=== PATIENT | male | born 1955 | race Hispanic/Latino ===

== ENCOUNTER 2024-03-28 06:53 | Day surgery (SDC) | payer OTHER ==
--- NOTE | 2024-03-26 12:05 | EKG ---
[facility] Test Date: 2024-03-26 Test Time: 12:44:08 Pat Name: AKIN VILLAGRAN Department: [facility] Room: Gender: M [employer] Supervisor: [id number] : 1955 Requested By: MAYA ABBASI Order Number: [id number] Reading MD: Andrew Boyle Measurements Intervals [place] Rate: 58 P: 21 [place]: 171 QRS: -3 QRSD: 93 T: 36 QT: 416 QTc: 406 Interpretive Statements Sinus rhythm Atrial premature complex No previous ECG available for comparison Electronically Signed On 03-27-2024 20:01:37 [employer] VENTILATOR by Andrew Boyle Please click the below link to view image of tracing.
[2024-03-26 12:12] LABS: BASOPHILS # (AUTO) 0.05 K/uL (0.00-0.20); BASOPHILS % (AUTO) 0.7 % (0.0-5.0); EOSINOPHILS # (AUTO) 0.04 K/uL (0.00-0.70); EOSINOPHILS % (AUTO) 0.6 % (0.0-8.0); HEMATOCRIT 43.3 % (42-54); IMMATURE GRANULOCYTE ABSOLUTE 0.02 K/uL (0-1); LYMPHOCYTES # (AUTO) 1.4 K/uL (1.0-4.8); LYMPHOCYTES % (AUTO) 19.9 % (21.0-51.0); MEAN CORPUSCULAR HEMOGLOBIN 30.8 pg (27.0-33.0); MEAN CORPUSCULAR HGB CONC 32.1 g/dL (32.0-36.0); MEAN CORPUSCULAR VOLUME 95.8 fL (79-99); MONOCYTES # (AUTO) 0.7 K/uL (0.1-1.0); MONOCYTES % (AUTO) 10.2 % (3.0-13.0); NEUTROPHILS # (AUTO) 4.9 K/uL (1.8-7.7); NEUTROPHILS % (AUTO) 68.3 % (40.0-77.0); PLATELET COUNT (AUTO) 244 K/uL (130-400); RED BLOOD CELL COUNT(AUTO) 4.52 MIL/uL (4.50-6.20); RED CELL DISTRIBUTION WIDTH 13.1 % (11.0-15.5); WHITE BLOOD COUNT (AUTO) 7.2 K/uL (4.8-10.8)
[2024-03-26 12:33] LABS: POTASSIUM 4.7 mmol/L (3.5-5.1)
[2024-03-26 12:37] VITALS: BP 187/101; PULSE 61; RESP 18; TEMP 97.5
[2024-03-26 12:45] LABS: INR 0.94 (0.85-1.15); PROTHROMBIN TIME 10.6 SEC (9.6-11.6)
[2024-03-26 12:47] LABS: PARTIAL THROMBOPLASTIN TIME 28.9 SEC (26.3-35.5)
[2024-03-26 12:50] LABS: B-TYPE NATRIURETIC PEPTIDE 54 pg/mL (0-100)
--- NOTE | 2024-03-26 13:06 | HMCIMG ---
CHEST 1VW REASON: PREOP COMPARISON: None FINDINGS: Single view of the chest was obtained. Lungs are clear. Heart size is normal. There is no pulmonary vascular congestion. Mediastinum and bony thorax appear unremarkable. IMPRESSION: 1. Normal single view chest x-ray.
[2024-03-26 13:24] LABS: APPEARANCE,URINE CLEAR (CLEAR); BILIRUBIN,URINE NEGATIVE (NEGATIVE); COLOR,URINE LIGHT-YELLOW (YELLOW); GLUCOSE, URINE (UA) 300 mg/dL (NEGATIVE); KETONES,URINE NEGATIVE (NEGATIVE); LEUKOCYTE ESTERASE ,URINE NEGATIVE Leu/uL (NEGATIVE); NITRATE,URINE NEGATIVE (NEGATIVE); PROTEIN,URINE 100 mg/dL (NEGATIVE); UROBILINOGEN,URINE 0.2 mg/dL (0.2-1.0)
[2024-03-26 13:58] LABS: ADD UA MICROSCOPIC YES
[2024-03-26 14:07] LABS: RBC,URINE 0-1 /HPF (0-1); SQUAMOUS EPITHELIAL CELL,UR RARE /HPF (0-2)
[2024-03-28] VITALS (12 sets, daily range): BP systolic 142–175; BP diastolic 69–84; PULSE 58–76; RESP 15–24; TEMP 97.4–98.1
[~2024-03-28] VITALS: Ht 170.2 cm; Wt 97.8 kg
[~2024-03-28 06:53] MED LIST: ATOR-2 PO; CHOL400T4 PO; LOSA100T59 PO; METF-446 PO; PIOG45TA64 PO; SILD100T PO; TAMS-1 PO
[2024-03-28] MEDS: 0.9%NACL 1000ML 1,000 ML IV SCH (07:59)
[2024-03-28] MEDS ORDERED: INSU100V51 SQ (08:29)
[2024-03-28] MEDS ORDERED: SODIUM BICARB 50MEQ 50ML VIAL 50 ML ONE (10:14)
[2024-03-28] MEDS ORDERED: LIDOCAINE HCL 400MG/20ML VIAL ONE (10:14)
[2024-03-28] MEDS ORDERED: HEParin-NS 1,000 UNIT/500 ML 1,000 ML IV ONE (10:14)
[2024-03-28] MEDS ORDERED: niCARDIpine 25MG INJ IV ONE (10:14)
[2024-03-28] MEDS ORDERED: HEParin 10,000 UNIT/10ML (1,000 UNIT/ML) VIAL ONE (10:14)
[2024-03-28] MEDS ORDERED: NITROGLYCERIN 50MG VIAL ONE (10:15)
[2024-03-28] MEDS ORDERED: FENTanyl CITRate PF 50 MCG/1 ML 2ML VIAL ONE (10:23)
[2024-03-28] MEDS ORDERED: MIDAZOLAM HCL 1 MG/ML 2ML VIAL ONE (10:23)
[2024-03-28] MEDS ORDERED: IOHEXOL 350 MG/ML 100ML INFUS..BTL IV ONE (10:36)
[2024-03-28] MEDS ORDERED: 0.9% NACL 500ML IV.SOLN 500 ML IV SCH (11:30)
--- NOTE | 2024-03-28 11:40 | PRN ---
Left Heart Catheterization And Coronary Arteriogram From Right Radial Approach Indication: High-Risk Stress Test In Diabetic With Peripheral Vascular Disease Technique: Patient was brought to the lab in a fasting state after informed consent and sedated with 4 mg Versed and 50 mcg fentanyl. Under local anesthesia with 1% lidocaine using ultrasound guidance the right radial artery was accessed and a 5/6 Welsh Terumo sheath was inserted. Right and left coronary arteriograms were obtained in multiple projections using a five Welsh tiger catheter. An exchange was made for a six Welsh angled pigtail and left heart catheterization was carried out. Pressures were measured and left ventricular cineangiography was performed in GREEN projection. Pullback recording was obtained. The catheter was removed over a guidewire and hemostasis was obtained by use of a to remove band. No complications occurred. Results: Hemodynamics: LVEDP 14 before angiography and 13 after. LV systolic pressure 153 with aortic root pressure 131/54, mean 87. It appeared there was significant catheter with; we do not believe there is significant aortic outflow gradient. Ventriculography: Frequent ectopy was induced by ventriculography in the AF appears to be 80% with this is post PVC. Mitral valve is competent and there were no regional wall motion abnormalities. Arteriography: This is a right-dominant system. The right coronary supplies and posterior descending in for posterolateral. There is 30% plaque after the conus branch in the proximal vertical portion and there was 30% narrowing at the origin of the posterior descending. There were 40% narrowing at the origins of the 1st and 2nd posterolateral. There was no high-grade disease in the right coronary. The left main is free of high-grade disease. The left anterior descending is notable for a 65% proximal narrowing, then an 80% radiolucent stenosis at the level of the 1st septal blueprint reader. Between the 1st septal blueprint reader and 1st diagonal, and the 2nd diagonal there was segmental high-grade disease with a radiolucent 85% narrowing superimposed and a 60-75% stenosis just proximal to the 2nd diagonal. The 2nd diagonal was neuro by 60% high-dose origin and it is a small vessel. After the 2nd diagonal there was a 50% narrowing and then the rest of the LAD is diffusely plaque laden and reduced in diameter less than 2 mm. The left circumflex is narrowed by 60% at its origin. The 1st obtuse marginal is a tiny branch nearby 90% at its origin. The principal circulation from the circumflex is in the large 2nd obtuse marginal which courses to the apex. The 2nd obtuse marginal is notable for an 85% segmental ostial narrowing. There was also a terminal posterolateral branch of the circumflex of limited distribution. Conclusions: This patient has a high-risk nuclear stress test associated with diffuse disease in the LAD and high-grade disease in the principal vessel of the circumflex. I perceive high restenosis potential because of diffuse disease with relatively small caliber LAD vessel, and the circumflex is also notable for a segmental ostial anatomy, so I believe internal mammary graft to the LAD with vein graft to the circumflex would be solution for this patient. MAYA ABBASI MD Mar 28, 2024 11:40
[2024-03-28] MEDS: INSULIN humuLIN R 100 UNIT/ML 3ML SQ ONE (12:15)
--- NOTE | 2024-03-28 12:30 | NUR ---
URINARY: VOIDED 300CC YELLOW COLOR URINE PER URINAL WITHOUT DIFFICULTY.
--- NOTE | 2024-03-28 14:45 | NUR ---
TR-BAND: TR BAND REMOVED WITH NO ACTIVE BLEEDING PRESENT. CLEANSED WITH CHLOR PREP FOLLOWED BY APPLYING STERILE 2X2 GAUZE THAN 2X2 TEGADERM. NO REDNESS/SWELLING NOTED TO SURROUNDING AREA RT WRIST.
--- NOTE | 2024-03-28 16:20 | NUR ---
UPDATE DR. JIMENEZ GIVEN VERBAL ORDERS FOR PATIENT TO BE DISCHARGED TODAY AND SURGERY TO BE DONE IN A WEEK.
== END 2024-03-28 16:40 | disposition home or self-care (01) ==
LOC: DAH 06:53
PROVIDERS: ATTEND Internal Medicine Cardiovascular Disease
DX: R94.39 Abnormal result of other cardiovascular function study (principal); E11.51 Type 2 diabetes mellitus with diabetic peripheral angiopathy without gangrene; I25.118 Atherosclerotic heart disease of native coronary artery with other forms of angina pectoris; I25.83 Coronary atherosclerosis due to lipid rich plaque; I99.8 Other disorder of circulatory system; I11.0 Hypertensive heart disease with heart failure; I50.30 Unspecified diastolic (congestive) heart failure; I74.3 Embolism and thrombosis of arteries of the lower extremities; I87.1 Compression of vein; R60.9 Edema, unspecified; E11.42 Type 2 diabetes mellitus with diabetic polyneuropathy; F17.200 Nicotine dependence, unspecified, uncomplicated; E66.9 Obesity, unspecified; I73.9 Peripheral vascular disease, unspecified; I87.2 Venous insufficiency (chronic) (peripheral); Z68.33 Body mass index [BMI] 33.0-33.9, adult; Z87.898 Personal history of other specified conditions; Z83.3 Family history of diabetes mellitus; Z90.89 Acquired absence of other organs; Z90.49 Acquired absence of other specified parts of digestive tract; Z79.899 Other long term (current) drug therapy; Z82.49 Family history of ischemic heart disease and other diseases of the circulatory system; Z79.84 Long term (current) use of oral hypoglycemic drugs
CPT/HCPCS: 80048; 83880; 85025; 85610; 85730; 81001; 36415; 71045; 93005; 93458; 82948 ×2; J1815; A4223 ×3; Q9965; C1887; C1769; C1894; J3010; J3490 ×4; J7030; J1644 ×2; J2250; Q9967; A4215; A4222; A6260; A4221; A4663; A4216; A6204; A4606; 96360; 96361; 99156; 99157